=== PATIENT | female | born 2000 | race Caucasian/White ===

== ENCOUNTER 2021-07-23 07:40 | Emergency (ER) | payer OTHER ==
[2021-07-23 07:49] VITALS: BP 114/67
[2021-07-23] MEDS ORDERED: LIDOCAINE 1% 2 ML VIAL SUBQ STA (08:11)
[2021-07-23] MEDS ORDERED: BUPIVACAINE 0.5% PF 10 ML VIAL SUBQ STA (08:12)
--- NOTE | 2021-07-23 08:14 | ED Physician Documentation ---
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 She has some swelling and redness. She has not had this happen to her previously. She is otherwise healthy and has no concomitant illness. Review of Systems Constitutional: denies: Fever Ears: denies: Ear pain Throat: denies: Sore throat Respiratory: denies: Cough GI: denies: Vomiting PD PAST MEDICAL HISTORY - Past Medical History Past Medical History: No Cardiovascular: None Respiratory: None Neuro: None Endocrine/Autoimmune: None GI: None [employer]: None : None HEENT: None Psych: None Musculoskeletal: None Derm: None - Past Surgical History Past Surgical History: No - Present Medications Home Medications: Ambulatory Orders Medication Instructions Recorded Confirmed Sulfamethox/Trimeth 800/160 1 each PO BID #10 tablet 07/23/21 [Bactrim Ds] - Allergies Allergies/Adverse Reactions: Allergies Allergy/AdvReac Type Severity Reaction Status Date / Time Penicillins Allergy Anaphylaxis Verified 07/23/21 07:44 - Social History Does the pt smoke?: No Smoking Status: Never smoker Does the pt drink ETOH?: No Does the pt have substance abuse?: No - Immunizations Immunizations are current?: Yes PD ED PE NORMAL - Vitals Vital signs reviewed: Yes (normal ) - General General: Alert and oriented X 3, No acute distress, Well developed/nourished - HEENT HEENT: Atraumatic, PERRL, EOMI - Respiratory Respiratory: No respiratory distress - Derm Derm: Normal color, Warm and dry, No rash - Extremities Extremities: Other (to the right middle finger there is swelling, erythema and tenderness. ) - Neuro Neuro: Alert and oriented X 3, flat polisher 2-12 intact, No motor deficit, No sensory deficit, Normal speech Eye Opening: Spontaneous Motor: Obeys Commands Verbal: Oriented GCS Score: 15 - Psych Psych: Normal mood, Normal affect Results - Vitals Vitals: Vital Signs - 24 hr 07/23/21 07:44 Temperature 36.2 C L Heart Rate 83 Respiratory 16 Rate Blood Pressure 114/67 O2 Saturation 99 Oxygen O2 Source Room air Procedures - Abscess I&D (location) right middle finger Preparation: Betadine, Other (digital block) Incision: Incised with scalpel, Purulent drainage Other: Pt tolerated well, Dressing applied, Antibiotic prescribed - Regional nerve block Nerve block site: Digital - note digit(s) (right middle) Right / left: Right Nerve block anesthesia: Lidocaine 1%, Marcaine 0.5% Nerve block aftercare: Excellent anesthesia, Patient tolerated well, No complications PD MEDICAL DECISION MAKING - ED course Complexity details: reviewed results, re-evaluated patient, considered differential, d/w patient ED course: 20 year-old Davide Agarwal has a paronychia. This was lanced and drained after a digital block performed. She tolerated this well. Departure - Departure Disposition: 01 Home, Self Care Clinical Impression: Paronychia Condition: Stable Instructions: ED Fingernail Infec Follow-Up: [facility] [Provider Group] Prescriptions: Sulfamethox/Trimeth 800/160 [Bactrim Ds] 1 each PO BID #10 tablet Comments: Davide, today it looks like you have a paronychia or an infection in the cuticle and this has been opened and drained the expectation is daily improvement. I have E [place] [facility] [place] principle of treatment is to improve blood supply to the area and the recommendation is to use a warm compress 2-3 times per day. This does not need to be can done continuously. 10 minutes to 15 minutes at a time. Discharge Date/Time: 07/23/21 09:40
[2021-07-23] MEDS ORDERED: BUPIVACAINE 0.5% PF 30 ML VIAL SUBQ STA (08:17)
== END 2021-07-23 09:40 | disposition home or self-care (01) ==
LOC: ED 07:40
DX: L03.011 Cellulitis of right finger (principal)
CPT/HCPCS: 26010; 64450

== ENCOUNTER 2021-12-02 07:58 | Emergency (ER) | payer OTHER ==
--- NOTE | 2021-12-02 08:38 | ED Physician Documentation ---
PD HPI LOWER EXT INJURY - Stated complaint Stated Complaint: R FOOT PX - Chief complaint Chief Complaint: Trauma Ext - History obtained from History obtained from: Patient - History of Present Illness PD HPI LOW EXT INJURY LOCATION: Right, Ankle Type of injury: Twist (while running on flat ground, had eversion twist of ankle, with pain dorsal and lateral.) Where injury occurred: Work Timing - onset: How many days ago (3) Timing - duration: Days (3) Timing - details: Abrupt onset, Still present Worsened by: Moving, Other (walking) Associated symptoms: Swelling. No: Weakness, Numbness Similar symptoms before: Has not had sx before Review of Systems Skin: denies: Rash, Lesions Neurologic: denies: Focal weakness, Numbness PD PAST MEDICAL HISTORY - Past Medical History Cardiovascular: None Respiratory: None Neuro: None Endocrine/Autoimmune: None GI: None [employer]: None : None HEENT: None Psych: None Musculoskeletal: None Derm: None - Past Surgical History Past Surgical History: No - Present Medications Home Medications: Ambulatory Orders Medication Instructions Recorded Confirmed No Known Home Medications 12/02/21 12/02/21 - Allergies Allergies/Adverse Reactions: Allergies Allergy/AdvReac Type Severity Reaction Status Date / Time Penicillins Allergy Anaphylaxis Verified 07/23/21 07:44 Sulfa (Sulfonamide Allergy Hives Verified 12/02/21 08:02 Antibiotics) - Social History Does the pt smoke?: No Smoking Status: Never smoker Does the pt drink ETOH?: No Does the pt have substance abuse?: No - Immunizations Immunizations are current?: Yes PD ED PE NORMAL - Vitals Vital signs reviewed: Yes - General General: Alert and oriented X 3, No acute distress, Well developed/nourished - Derm Derm: Normal color, Warm and dry - Extremities Extremities: Other (right ankle with anterolateral swelling and mild bruising. Achilles not tender. No gross laxity with inversion testing but hurts. Medially not tender. ) - Neuro Neuro: Alert and oriented X 3, No motor deficit, No sensory deficit, Normal speech Results - Vitals Vitals: Oxygen O2 Source Room air - Rads (name of study) right ankle Radiology: Prelim report reviewed (no fractures. ), See rad report PD MEDICAL DECISION MAKING - ED course Complexity details: reviewed results, considered differential (xray okay. Does seem likely partial tear of ligament given pain,s welling, bruising. Will treat with aircast and less activity.), d/w patient Departure - Departure Disposition: 01 Home, Self Care Clinical Impression: Ankle sprain Qualifiers: Encounter type: initial encounter Involved ligament of ankle: deltoid ligament Laterality: right Qualified Code(s): S93.421A - Sprain of deltoid ligament of right ankle, initial encounter Condition: Stable Record reviewed to determine appropriate education?: Yes Instructions: ED Sprain Ankle W X Ray Follow-Up: [facility] [Provider Group] Comments: Your x-ray appears normal without any bony abnormalities/fractures. It seems clinically like a sprain of the ankle ligaments. I would suggest using the Aircast ankle brace when up and around for the next week or so. You will need to use other types of shoes to accommodate the splint as it would not really fit in with your typical work boots. Light duty and activity without any heavy lifting or prolonged standing walking for 3 to 5 days. Ibuprofen 3 times daily with food for the next 5 to 7 days. Add Tylenol every 4 hours if needed for pain. I would anticipate this improving over the next 3 to 5 days. Follow-up with your clinic if not. Forms: Activity restrictions Discharge Date/Time: 12/02/21 09:52
[2021-12-02] MEDS ORDERED: ACETAMINOPHEN 325 MG TABLET PO STA (08:50)
[2021-12-02] MEDS ORDERED: IBUPROFEN 600 MG TABLET PO STA (08:50)
--- NOTE | 2021-12-02 09:54 | XRAY Report ---
PROCEDURE: Ankle 3 View RT INDICATIONS: ankle twist/injury TECHNIQUE: 3 views of the ankle were acquired. COMPARISON: None FINDINGS: Bones: No fractures or dislocations. Ankle mortise is normally aligned. No suspicious bony lesions . Soft tissues: No tibiotalar joint effusion. Achilles tendon appears normal. IMPRESSION: No visualized acute fracture or dislocation. However, occult injury cannot be excluded. Recommend short interval imaging follow-up in 7-10 days as clinically indicated for additional evalua tion. Reviewed by: Liliya Grullon MD on 12/02/2021 9:52 AM PDT Approved by: Liliya Grullon MD on 12/02/2021 9:52 AM PDT Station ID: [id number]
[2021-12-02 09:58] VITALS: BP 112/75
== END 2021-12-02 09:52 | disposition home or self-care (01) ==
LOC: ED 07:58
DX: S93.421A Sprain of deltoid ligament of right ankle, initial encounter (principal); X50.1XXA Overexertion from prolonged static or awkward postures, initial encounter; Y99.0 Civilian activity done for income or pay
CPT/HCPCS: 73610; 99282; 99283; A9270

== ENCOUNTER 2022-04-21 13:00 | Outpatient (CLI) | payer SELFPAY ==
[2022-04-21 22:12] LABS: BACTERIAL VAGINOSIS DNA NEGATIVE (NEGATIVE); CANDIDA KRUSEI DNA NEGATIVE (NEGATIVE); TRICHOMONAS VAGINALIS DNA NEGATIVE (NEGATIVE)
[2022-04-21 22:13] LABS: CANDIDA GLABRATA DNA NEGATIVE (NEGATIVE); CANDIDA GROUP DNA POSITIVE (NEGATIVE)
[2022-04-22 01:02] LABS: CHLAMYDIA TRACHOMATIS DNA NEGATIVE (NEGATIVE)
[2022-04-22 01:03] LABS: NEISSERIA GONORRHOEAE DNA NEGATIVE (NEGATIVE)
== END 2022-04-21 13:15 | disposition home or self-care (01) ==
LOC: LAB.N 13:00
PROVIDERS: ATTEND Physician Assistant Medical
DX: R30.0 Dysuria (principal)
CPT/HCPCS: 81514; 87086; 87491; 87591; 87661